=== PATIENT | female | born 2000 | race Caucasian/White ===

== ENCOUNTER 2024-04-11 05:41 | Inpatient (IN) | payer OTHER, SELFPAY ==
[2024-04-11] MEDS ORDERED: fentaNYL 50 mcg/mL 1 mL Vial SLOW IVP PRN ×2 (06:30→08:41)
[2024-04-11] MEDS ORDERED: Oxytocin 30 units/NS 500 ML 500 ML IV SCH ×2 (06:30→11:21)
[2024-04-11] MEDS ORDERED: Famotidine/PF 20 mg/2ml Vial SLOW IVP PRN (06:30)
[2024-04-11] MEDS ORDERED: Lactated Ringer's 1,000 ML IV SCH (06:30)
[2024-04-11] MEDS ORDERED: Promethazine HCl 25 MG/ML VIAL IM PRN ×3 (06:30→12:14)
[2024-04-11] MEDS ORDERED: Bicitra 30 ML UDCUP PO PRN (06:30)
[2024-04-11] MEDS ORDERED: Ondansetron PF 4 MG/2 ML Vial IVP PRN ×2 (06:30→08:41)
[2024-04-11] MEDS ORDERED: hydrALAZINE 20 MG/ML VIAL SLOW IVP PRN ×2 (06:30→11:21)
[2024-04-11 06:33] VITALS: BMI 25.8
[2024-04-11 06:58] LABS: Hematocrit 35.2 % (34.9-44.5); Hemoglobin 11.8 g/dL (12.0-15.5); Mean Corpuscular HGB CONC 33.5 g/dL (32.0-36.0); Mean Corpuscular Hemoglobin 31.4 pg (27.0-33.0); Mean Corpuscular Volume 93.6 fL (81.6-98.3); Platelet Count 235 10x3/uL (150-450); Red Blood Cell (RBC) Count 3.76 10x6/uL (3.90-5.03); White Blood Cell (WBC) Count 9.62 10x3/uL (3.5-10.5)
[2024-04-11] MEDS: CEFAZOLIN 2 GM in Sodium Chloride 0.9% 100 ML IVPB SCH (07:06)
[2024-04-11 07:31] LABS: Hep B Surf Ag - L&D Non-Reactive S/CO (NonReactive)
[2024-04-11 07:32] LABS: Syphilis Antibody Nonreactive (Nonreactive); Syphilis Antibody Index 0.04 S/CO (<1.00 Non-Reactive)
[2024-04-11] MEDS ORDERED: diphenhydrAMINE 50 MG/ML VIAL IVP PRN (08:41)
[2024-04-11] MEDS ORDERED: Naloxone HCl 0.4 mg/ml Vial IVP PRN ×2 (08:41)
[2024-04-11] MEDS ORDERED: HYDROmorphone 0.5 MG/0.5 ML SYRINGE SLOW IVP PRN (08:41)
[2024-04-11] MEDS ORDERED: Naloxone HCl 0.4 mg/ml Vial IV PRN (08:41)
[2024-04-11] MEDS ORDERED: Meperidine HCl/PF 25 MG (1 mL) VIAL SLOW IVP PRN (08:41)
[2024-04-11] MEDS ORDERED: Moisturizing Cream (Eucerin) 113 GM JAR TOP PRN (08:41)
[2024-04-11] MEDS ORDERED: Ketorolac Tromethamine 30 MG (1 mL) VIAL IVP PRN (08:41)
[2024-04-11] MEDS ORDERED: Communication Order-Pharmacy FS SCH (08:45)
[2024-04-11] MEDS: Ketorolac Tromethamine 30 MG (1 mL) VIAL IVP SCH (10:21)
[2024-04-11] MEDS: Ondansetron PF 4 MG/2 ML Vial IVP PRN ×2 (10:21→12:12)
[2024-04-11] MEDS ORDERED: Simethicone Chewable 80 MG TAB PO PRN (11:21)
[2024-04-11] MEDS ORDERED: Lanolin Ointment 7 GM TUBE TOP PRN (11:21)
[2024-04-11] MEDS ORDERED: Bisacodyl 10 MG SUPP PR PRN (11:21)
[2024-04-11] MEDS: HYDROmorphone 0.5 MG/0.5 ML SYRINGE SLOW IVP SCH (12:55)
[2024-04-11] MEDS: Ferrous Sulfate 325 MG TAB PO SCH ×3 (13:46→19:02)
[2024-04-11] MEDS: Docusate 100 MG CAP PO SCH ×3 (13:46→19:40)
[2024-04-11] MEDS: Prenatal Vitamin 1 TAB PO SCH (13:46)
[2024-04-11] MEDS: Dexamethasone 10 MG/ML VIAL ONE (14:16)
[2024-04-11] MEDS: Ondansetron PF 4 MG/2 ML Vial ONE (14:16)
[2024-04-11] MEDS: Phenylephrine 40 MG/NS 250 ML 250 ML ONE (14:16)
[2024-04-11] MEDS: Oxytocin 10 UNITS/ML VIAL ONE (14:16)
[2024-04-11] MEDS: Morphine PF 10 MG/10 ML VIAL ONE (14:17)
[2024-04-11] MEDS: Fentanyl 100 MCG/2 ML VIAL ONE (14:17)
[2024-04-11] MEDS: ePHEDrine Sulfate 50 MG/10 ML VIAL ONE (14:17)
[2024-04-11] MEDS: Phytonadione Neonatal 1 MG/0.5 ML AMP ONE (14:17)
[2024-04-11] MEDS: Erythromycin Base 0.5% Oint 1 GM TUBE ONE (14:17)
[2024-04-11] MEDS: Hepatitis B Vaccine 10 MCG/0.5 ML SYR ONE (14:17)
[2024-04-11] MEDS: Glycopyrrolate 0.2 MG/ML 5 ML SYRINGE ONE (14:18)
[2024-04-11] MEDS: diphenhydrAMINE 25 MG CAP PO PRN (15:39)
[2024-04-11] MEDS: Ketorolac Tromethamine 30 MG (1 mL) VIAL IVP PRN (19:40)
[2024-04-12 05:05] LABS: Hematocrit 29.2 % (34.9-44.5); Hemoglobin 10.2 g/dL (12.0-15.5); Mean Corpuscular HGB CONC 34.9 g/dL (32.0-36.0); Mean Corpuscular Hemoglobin 32.9 pg (27.0-33.0); Mean Corpuscular Volume 94.2 fL (81.6-98.3); Mean Platelet Volume 10.5 fL (7.4-10.4); Platelet Count 218 10x3/uL (150-450); RBC Distribution Width 12.9 % (11.5-14.5); White Blood Cell (WBC) Count 14.05 10x3/uL (3.5-10.5)
[2024-04-12] MEDS: Prenatal Vitamin 1 TAB PO SCH (08:29)
[2024-04-12] MEDS: Boostrix 0.5 ML (Tdap) VIAL (>/=7 yrs of age) IM ONE (08:34)
[2024-04-12] MEDS: HYDROcodone/Acetaminophen 5/325 mg Tablet PO PRN ×2 (10:37→19:38)
[2024-04-12] MEDS: Ibuprofen 800 MG TAB PO SCH (16:30)
[2024-04-13 08:18] VITALS: TEMP 98.1
[2024-04-13 11:38] VITALS: BP 108/60
== END 2024-04-13 14:45 | disposition home or self-care (01) | DRG 788 ==
LOC: CSHLD 05:41 → CSHPP 11:10
PROVIDERS: ADMIT Obstetrics & Gynecology; ATTEND Obstetrics & Gynecology
PROC: 10D00Z1 Extraction of Products of Conception, Low, Open Approach (ICD-10-PCS; principal; 2024-04-11)
DX: O36.5930 Maternal care for other known or suspected poor fetal growth, third trimester, not applicable or unspecified (principal); Z3A.39 39 weeks gestation of pregnancy; Z37.0 Single live birth
CPT/HCPCS: 36415; 36416; 51702; 85027; 86780; 86850; 86900; 86901; 87340; J1100; J1171; J1885; J2274; J2405; J2590; J3010